=== PATIENT | female | born 1980 | race Caucasian/White ===

== ENCOUNTER → 2020-02-05 | Day surgery (SDC) | payer OTHER ==
[~2020-02-05] MED LIST: LAMICTAL100 MG PO; NORCO 5-325 TA1 EACH PO; PROZAC20 MG PO; XANAX 0.25 MG0.25 MG PO; birth control
[2020-02-05 13:46] LABS: ABSOLUTE LYMPHOCYTES 1.6 thou/uL (0.8-5.3); ABSOLUTE MONOCYTES 0.3 thou/uL (0.0-1.2); ABSOLUTE NEUTROPHILS 6.1 thou/uL (1.6-8.1); BASOPHILS 0.2 %; EOSINOPHILS 0.3 %; HEMATOCRIT 40.4 % (37.0-47.0); LYMPHOCYTES 20.3 %; MCH 31.2 pg (26.0-34.0); MCHC 34.6 g/dL (28.0-37.0); MCV 90.2 fL (80.0-100.0); MONOCYTES 3.3 %; MPV 7.5 fl. (7.2-11.1); NUCLEATED RBCS 0 /100WBC; PLATELET COUNT* 240 thou/uL (150-400); POLYS 75.9 %; RBC 4.48 mil/uL (4.20-5.00)
[2020-02-05 13:55] LABS: CALCIUM 8.5 mg/dL (8.5-10.1); CREATININE 0.8 mg/dL (0.6-1.3); POTASSIUM 3.9 mmol/L (3.5-5.1)
[2020-02-05 14:00] LABS: ALBUMIN 3.7 g/dL (3.4-5.0); TOTAL BILIRUBIN 0.5 mg/dL (<0.1-1.0); TOTAL PROTEIN 6.9 g/dL (6.4-8.2)
[2020-02-05 14:48] LABS: ESR (SEDRATE) 2 mm/hr (0-20)
--- NOTE | 2020-02-09 15:08 | PATH ---
[address] [address] PATHOLOGY RPT PROCEDURE Name: OLVIN BA Room: [facility]#: [id number] Admission: 02/05/20 Date of : 80 Discharge: Report #: [id number] Path Case #: [id number] [facility] Accession Number: [id number] . 01 Material submitted: . colon - RANDOM COLON BIOPSIES . 01 Clinical history: . Diarrhea, abdominal pain . 02 Diagnosis: Random colon biopsies: - Normal colonic mucosa. (GLADIS:keon; 02/09/2020) [facility] [place] 02/09/2020 [facility]3 Local . 02 Electronically signed: . Dean Galdamez MD, Pathologist NPI- [id number] . 01 Gross description: . The specimen is received in formalin, labeled "Olvin Ba, random colon biopsies" and consists of multiple fragments of white-schneider tissue measuring 1.3 x 1.2 x 0.2 cm in aggregate which are entirely submitted in A1. (BUSTER; 02/06/2020) JFQ/JFQ 02/06/2020 1146 Local . 02 Pathologist provided ICD-10: R19.7, R10.9 . 02 CPT . 248409 Specimen Comment: A courtesy copy of this report has been sent to [phone] Specimen Comment: [phone] Specimen Comment: Report sent to / DR DILL Performed at: [address], [place] [id number] MD Anil Gaytan MD Phone: [phone] Performed at: 02 [facility] [address], [place], [place] [id number] MD Dean Galdamez MD Phone: [phone]
== END | disposition home or self-care (01) ==
LOC: M.SUR 07:05
PROVIDERS: Internal Medicine Gastroenterology
DX: R10.30 Lower abdominal pain, unspecified (principal); K58.0 Irritable bowel syndrome with diarrhea; K64.9 Unspecified hemorrhoids